=== PATIENT | female | born 1995 | race Caucasian/White ===

== ENCOUNTER 2017-05-23 20:55 | Emergency (ER) | payer OTHER ==
[2017-05-23 21:37] LABS: microscopic required? NO
[2017-05-23 21:44] LABS: urine erythrocyte NEGATIVE (NEGATIVE)
[2017-05-23 21:48] LABS: BASOPHIL % 0.4 % (0-2); PLATELET COUNT 219 x10^3mcL (130-400); RED CELL DISTRIBUTION WIDTH 13.8 % (11.5-14.5)
[2017-05-23 21:53] LABS: CALCIUM 9.1 mg/dL (8.5-10.1); CHLORIDE SERUM 103 mmol/L (98-107); CREATININE SERUM 0.6 mg/dL (0.6-1.0); GFR1 > 60 mL/min; GLUCOSE SERUM 100 mg/dL (74-106); POTASSIUM SERUM 3.7 mmol/L (3.5-5.1); SODIUM SERUM 138 mmol/L (136-145)
[2017-05-23 21:57] LABS: ALBUMIN 3.6 g/dL (3.4-5.0); ALKALINE PHOSPHATASE 52 U/L (46-116); ALT/SGPT 19 U/L (14-59); AST/SGOT 22 U/L (15-37); BILIRUBIN TOTAL 0.2 mg/dL (0.20-1.00); LIPASE 177 IU/L (73-393); TOTAL PROTEIN, SERUM 7.5 g/dL (6.4-8.2)
[2017-05-23 22:36] VITALS: BP 112/63
== END 2017-05-23 22:36 | disposition home or self-care (01) ==
LOC: ED 20:55
PROVIDERS: Emergency Medicine
DX: R10.32 Left lower quadrant pain (principal)
CPT/HCPCS: 36415